=== PATIENT | female | born 2000 | race Caucasian/White ===

== ENCOUNTER → 2022-03-28 | Outpatient (CLI) | payer OTHER ==
[~2022-03-28] MED LIST: GLUCOPHAGE500 MG PO; IBUPROFEN PO; KEFLEX500 MG PO; LAMOTRIGINE100 MG PO; NORCO 7.5-3251 EACH PO; ONCE DAILY1 EACH PO; SINGULAIR10 MG PO; SYNTHROID25 MCG PO; VIT C PO
== END ==
LOC: KOH-I 14:15
DX: M79.671 Pain in right foot (principal); M25.571 Pain in right ankle and joints of right foot; M19.071 Primary osteoarthritis, right ankle and foot
CPT/HCPCS: 73610; 73630